=== PATIENT | male | born 1965 | race Caucasian/White ===

== ENCOUNTER 2024-03-09 05:13 | Emergency (ER) | payer OTHER ==
[~2024-03-09] VITALS: Ht 182.9 cm; Wt 71.8 kg
[2024-03-09 05:44] VITALS: BP 102/66; PULSE 99; RESP 21; TEMP 97.7
[2024-03-09] MEDS: BuPROPion HCL XL 150 MG ER TABLET PO ONE (07:15)
[2024-03-09] MEDS: BACITRACIN 0.9 GM PACKET OINTMENT TP ONE (07:26)
[2024-03-09] MEDS: OxyCODONE HCL/ACETAMINOPHEN 5-325 MG TABLET PO ONE (07:26)
[2024-03-16] MEDS ORDERED: BACTDSB PO (10:47)
[2024-03-16] MEDS ORDERED: ATOR20TA PO (10:47)
[2024-03-16] MEDS ORDERED: ASPI-1444 PO (10:47)
== END 2024-03-09 16:33 | disposition left against medical advice (07) ==
LOC: EMS 05:17
DX: S70.02XA Contusion of left hip, initial encounter (principal); S60.222A Contusion of left hand, initial encounter; G82.50 Quadriplegia, unspecified; I10 Essential (primary) hypertension; Z98.890 Other specified postprocedural states; X58.XXXA Exposure to other specified factors, initial encounter; Y93.89 Activity, other specified; Y92.89 Other specified places as the place of occurrence of the external cause; Y99.8 Other external cause status
CPT/HCPCS: 71101; 73503; 99284